=== PATIENT | female | born 1970 | race Caucasian/White ===

== ENCOUNTER → 2019-01-01 | Outpatient (CLI) | payer BC ==
[2019-01-01 11:51] LABS: ALANINE AMINOTRANSFERASE 21 U/L (9-52); ALBUMIN 4.3 g/dL (3.5-5.0); ALKALINE PHOSPHATASE 53 U/L (38-126); ANION GAP 10 (5-19); ASPARTATE AMINO TRANSFERASE 18 U/L (14-36); BILIRUBIN,DIRECT 0.1 mg/dL (0.0-0.4); BILIRUBIN,TOTAL 0.4 mg/dL (0.2-1.3); BLOOD UREA NITROGEN 16 mg/dL (7-20); CALCIUM 9.2 mg/dL (8.4-10.2); CARBON DIOXIDE 27 mmol/L (22-30); CHLORIDE 103 mmol/L (98-107); GAMMA-GLUTAMYL TRANSFERASE 15 U/L (8-78); GLUCOSE 85 mg/dL (75-110); POTASSIUM 4.1 mmol/L (3.6-5.0); SODIUM 139.7 mmol/L (137-145); TOTAL PROTEIN 6.6 g/dL (6.3-8.2)
[2019-01-03 11:32] LABS: ANTINUCLEAR ANTIBODIES Negative (Negative)
[2019-01-05 04:37] LABS: ENDOMYSIAL ANTIBODY IGA Negative (Negative)
[2019-01-05 08:22] LABS: DEAMIDATED GLIADIN IGA AB 4 units (0-19); DEAMIDATED GLIADIN IGG AB 2 units (0-19); T-TRANSGLUTAMINASE (TTG) IGA <2 U/mL (0-3); T-TRANSGLUTAMINASE (TTG) IGG <2 U/mL (0-5)
== END ==
LOC: LAB 10:18
DX: R10.84 Generalized abdominal pain (principal)
CPT/HCPCS: 36415; 80053; 82977; 83520; 85652; 86038; 86141; 86430; 86677